=== PATIENT | male | born 1955 | race Caucasian/White ===

== ENCOUNTER → 2020-06-16 | Day surgery (SDC) | payer OTHER ==
[~2020-06-16] MED LIST: ACETAMINOPHEN500 M1 PO; COLACE100 MG PO; IBUPROFEN800 MG PO; MIRALAX17 GM PO; OXY-IR 5MG5 MG PO
== END | disposition home or self-care (01) ==
LOC: FAS 06:30
DX: K64.4 Residual hemorrhoidal skin tags (principal); K64.8 Other hemorrhoids; D12.2 Benign neoplasm of ascending colon; K57.30 Diverticulosis of large intestine without perforation or abscess without bleeding; E04.1 Nontoxic single thyroid nodule; Z20.822 Contact with and (suspected) exposure to COVID-19; Z86.018 Personal history of other benign neoplasm; Z80.0 Family history of malignant neoplasm of digestive organs; Z90.49 Acquired absence of other specified parts of digestive tract; Z98.890 Other specified postprocedural states; Z82.49 Family history of ischemic heart disease and other diseases of the circulatory system; Z87.891 Personal history of nicotine dependence
CPT/HCPCS: 88305; J0690; J1100; J1644; J2175; J2250; J2704; J3010; J7120